=== PATIENT | male | born 1945 | race Caucasian/White ===

== ENCOUNTER → 2020-05-04 | Outpatient (CLI) | payer OTHER ==
[~2020-05-04] MED LIST: ACET325 PO; AMLO10 PO; AMLODIPINE BESYL5 MG PO; ASPI325; ASPI81EC PO; ATOR20 PO; BUPR150T2; CEFTRIAXON1 GM/50 M1 IV; CEPH500 PO; CITA20 PO; CLOP75 PO; FLAGYL500 M2 PO; Lisinopril2.5 MG PO; OXYC5 PO; PAIN RELIEF1 EACH TOP; SILDENAFIL20 MG; Saw Palmetto C1 EACH; TAMSULOSIN HCL0.4 M1 PO; TIMO.5OPG; VISBIOME 112.51 EACH PO; VITS; XARELTO15 M1 PO; ZOLPIDEM TARTRA10 MG PO; [UNRECOGNIZED DRUG - REMARK]; [UNRECOGNIZED DRUG - REMARK]
[2020-05-04 09:01] LABS: Bacteria Not Seen /hpf; Red Blood Cells, Urine 50-100 /hpf (0-2); Source, Urine Clean Catch; Squamous Epithelial Cells Mod /hpf (Few)
[2020-05-04 09:03] LABS: White Blood Cells, Urine Rare /hpf (0-5)
== END | disposition home or self-care (01) ==
LOC: LAB SHORT 08:56 → LAB 08:56
PROVIDERS: Physician Assistant
DX: N39.0 Urinary tract infection, site not specified (principal); R30.9 Painful micturition, unspecified
CPT/HCPCS: 81015; 87086

== ENCOUNTER → 2020-06-24 | Outpatient (CLI) | payer OTHER ==
[2020-06-24 16:34] LABS: Appearance, Urine Cloudy (Clear); Bilirubin, Urine Neg (Neg); Blood, Urine 5+ (Neg); Color, Urine Yellow (P-Yellow); Glucose Qualitative, Urine Neg (Neg); Ketones, Urine Neg (Neg); Leukocyte Esterase, Urine 1+ (Neg); Nitrite, Urine Neg (Neg); Protein, Urine 2+ (Neg); Urobilinogen, Urine 1+ (Normal)
[2020-06-24 16:41] LABS: Albumin, Blood 3.7 g/dL (3.4-5.0); Alk Phos 105 U/L (50-136); Anion Gap 3 mmol/L (6-16); Aspartate Aminotrans (AST/SGOT 18 U/L (12-37); Blood Urea Nitrogen 17 mg/dL (8-24); CHOL/HDL RATIO 3.5; CO2, Blood 31 mmol/L (21-32); Calcium, Blood 9.5 mg/dL (8.5-10.1); Chloride, Blood 103 mmol/L (98-108); Cholesterol 209 mg/dL (50-200); Glucose, Blood 107 mg/dL (70-99); HDL Cholesterol 60 mg/dL (>39); LDL/HDL RATIO 2.1; Low Density Lipoprotein Chol 128 mg/dL (0-110); Sodium, Blood 137 mmol/L (136-145); Triglycerides 103 mg/dL (30-160); Very Low Density Lipoprot Chol 20 mg/dL (6-32)
[2020-06-24 16:48] LABS: Alanine Aminotransfer (ALT/SGP 31 U/L (12-78); Albumin/Globulin Ratio 0.8 (0.8-1.8); Bilirubin, Total 0.4 mg/dL (0.1-1.0); Globulin, Blood 4.4 g/dL (2.2-4.0); Glomerular Filtration Rate >60 (60-); Total Protein, Blood 8.1 g/dL (6.4-8.2)
[2020-06-24 16:56] LABS: Bacteria Few /hpf; Red Blood Cells, Urine TNTC /hpf (0-2); Squamous Epithelial Cells Few /hpf (Few)
== END | disposition home or self-care (01) ==
LOC: LAB SHORT 14:46 → PLD 14:46
PROVIDERS: Registered Nurse
DX: E78.5 Hyperlipidemia, unspecified (principal); N40.1 Benign prostatic hyperplasia with lower urinary tract symptoms; R30.9 Painful micturition, unspecified
CPT/HCPCS: 80053; 80061; 81001; 84153; 87077; 87086; 87186

== ENCOUNTER 2020-07-22 07:49 | Emergency (ER) | payer OTHER ==
[~2020-07-22] VITALS: Ht 190.5 cm; Wt 90.7 kg
[~2020-07-22 07:49] MED LIST changes: -ACET325 PO; -AMLO10 PO; -AMLODIPINE BESYL5 MG PO; -CEFTRIAXON1 GM/50 M1 IV; -CEPH500 PO; -FLAGYL500 M2 PO; -OXYC5 PO; -PAIN RELIEF1 EACH TOP; -TAMSULOSIN HCL0.4 M1 PO; -VISBIOME 112.51 EACH PO; -XARELTO15 M1 PO; -ZOLPIDEM TARTRA10 MG PO
[2020-07-22 08:27] LABS: Source, Urine Clean Catch
[2020-07-22 08:32] LABS: Blood, Urine 5+ (Neg); Glucose Qualitative, Urine Neg (Neg); Ketones, Urine 1+ (Neg); Leukocyte Esterase, Urine 3+ (Neg); Nitrite, Urine Pos (Neg); Protein, Urine 3+ (Neg); Specific Gravity, Urine 1.025 (1.003-1.022); Urobilinogen, Urine 2+ (Normal)
[2020-07-22 08:55] LABS: Bilirubin, Urine 1+ (Neg)
[2020-07-22 08:58] LABS: Appearance, Urine Bloody (Clear); Color, Urine Amber (P-Yellow); Red Blood Cells, Urine TNTC /hpf (0-2); White Blood Cells, Urine TNTC /hpf (0-5)
[2020-07-22 09:00] LABS: Bacteria Many /hpf; Squamous Epithelial Cells Not Seen /hpf (Few)
[2020-07-22] MEDS ORDERED: AMLODIPINE BESYL5 MG PO (09:33)
[2020-07-22] MEDS ORDERED: XARELTO15 M1 PO (09:34)
[2020-07-22] MEDS ORDERED: TAMSULOSIN HCL0.4 M1 PO (09:34)
[2020-07-22] MEDS ORDERED: ZOLPIDEM TARTRA10 MG PO (09:34)
[2020-07-22 09:41] LABS: BASOPHILS ABSOLUTE AUTO 0.04 K/mm3 (0.00-0.23); BASOPHILS PERCENT AUTO 1 % (0-2); EOSINOPHILS ABSOLUTE AUTO 0.33 K/mm3 (0.00-0.68); EOSINOPHILS PERCENT AUTO 4 % (0-6); Hematocrit 24.7 % (37.0-53.0); Hemoglobin 7.9 g/dL (13.5-17.5); IMMATURE GRAN ABSOLUTE AUTO 0.05 K/mm3 (0.00-0.10); IMMATURE GRAN PERCENT AUTO 1 % (0-1); LYMPHOCYTES ABSOLUTE AUTO 0.91 K/mm3 (0.84-5.20); LYMPHOCYTES PERCENT AUTO 11 % (21-46); MONOCYTES ABSOLUTE AUTO 1.29 K/mm3 (0.16-1.47); MONOCYTES PERCENT AUTO 15 % (4-13); Mean Corpuscular HGB 28.3 pg (26.0-34.0); Mean Corpuscular Volume 89 fL (80-100); Mean Platelet Volume 9.4 fL (9.1-12.4); NEUTROPHILS ABSOLUTE AUTO 5.87 K/mm3 (1.96-9.15); NEUTROPHILS PERCENT AUTO 69 % (41-73); Platelet Count 258 K/mm3 (150-400); RDW Coefficient Variation 14.1 % (11.7-14.2); RDW Standard Deviation 46.2 fL (35.1-46.3); Red Blood Cell Count 2.79 M/mm3 (4.30-5.90); White Blood Cell Count 8.49 K/mm3 (4.00-11.30)
[2020-07-22 10:04] LABS: Alanine Aminotransfer (ALT/SGP 26 U/L (12-78); Albumin, Blood 3.1 g/dL (3.4-5.0); Albumin/Globulin Ratio 0.8 (0.8-1.8); Alk Phos 117 U/L (50-136); Anion Gap 3 mmol/L (6-16); Aspartate Aminotrans (AST/SGOT 17 U/L (12-37); Blood Urea Nitrogen 24 mg/dL (8-24); Bun/Creatinine Ratio 26.8 (12.0-20.0); CO2, Blood 31 mmol/L (21-32); Calcium, Blood 8.8 mg/dL (8.5-10.1); Chloride, Blood 106 mmol/L (98-108); Globulin, Blood 3.9 g/dL (2.2-4.0); Glomerular Filtration Rate >60 (60-); Glucose, Blood 113 mg/dL (70-99); Potassium, Blood 3.7 mmol/L (3.5-5.5); Sodium, Blood 140 mmol/L (136-145)
[2020-07-22] MEDS ORDERED: CEPH500 PO (12:56)
== END 2020-07-22 13:05 | disposition home or self-care (01) ==
LOC: ER 07:49
PROVIDERS: Emergency Medicine; Physician Assistant
DX: N32.1 Vesicointestinal fistula (principal); N39.0 Urinary tract infection, site not specified; S32.592A Other specified fracture of left pubis, initial encounter for closed fracture; D64.9 Anemia, unspecified; Z91.81 History of falling; X58.XXXA Exposure to other specified factors, initial encounter
CPT/HCPCS: 36415; 74177; 80053; 81001; 83735; 85025; 87077; 87086; 87186; 96365-59; 96366; 99284-25; A9270; J0696; Q9967

== ENCOUNTER 2020-07-23 14:23 | Inpatient (IN) | payer OTHER, MEDICARE ==
[~2020-07-23] VITALS: Ht 190.5 cm; Wt 89.5 kg
[~2020-07-23 14:23] MED LIST changes: +AMLODIPINE BESYL5 MG PO; +CEPH500 PO; +TAMSULOSIN HCL0.4 M1 PO; +XARELTO15 M1 PO; +ZOLPIDEM TARTRA10 MG PO
[2020-07-23 15:19] LABS: BASOPHILS ABSOLUTE AUTO 0.04 K/mm3 (0.00-0.23); BASOPHILS PERCENT AUTO 0 % (0-2); EOSINOPHILS ABSOLUTE AUTO 0.05 K/mm3 (0.00-0.68); EOSINOPHILS PERCENT AUTO 1 % (0-6); Hematocrit 25.4 % (37.0-53.0); Hemoglobin 8.1 g/dL (13.5-17.5); IMMATURE GRAN ABSOLUTE AUTO 0.03 K/mm3 (0.00-0.10); IMMATURE GRAN PERCENT AUTO 0 % (0-1); LYMPHOCYTES ABSOLUTE AUTO 0.34 K/mm3 (0.84-5.20); LYMPHOCYTES PERCENT AUTO 3 % (21-46); MONOCYTES ABSOLUTE AUTO 0.19 K/mm3 (0.16-1.47); MONOCYTES PERCENT AUTO 2 % (4-13); Mean Corpuscular HGB Conc 31.9 g/dL (31.5-36.5); Mean Corpuscular Volume 88 fL (80-100); Mean Platelet Volume 9.6 fL (9.1-12.4); NEUTROPHILS ABSOLUTE AUTO 9.62 K/mm3 (1.96-9.15); NEUTROPHILS PERCENT AUTO 94 % (41-73); Platelet Count 287 K/mm3 (150-400); RDW Coefficient Variation 14.3 % (11.7-14.2); RDW Standard Deviation 46.2 fL (35.1-46.3); Red Blood Cell Count 2.89 M/mm3 (4.30-5.90); White Blood Cell Count 10.27 K/mm3 (4.00-11.30)
[2020-07-23 15:43] LABS: Alanine Aminotransfer (ALT/SGP 26 U/L (12-78); Albumin, Blood 2.9 g/dL (3.4-5.0); Albumin/Globulin Ratio 0.7 (0.8-1.8); Alk Phos 140 U/L (50-136); Anion Gap 8 mmol/L (6-16); Aspartate Aminotrans (AST/SGOT 26 U/L (12-37); Bilirubin, Total 1.4 mg/dL (0.1-1.0); Blood Urea Nitrogen 22 mg/dL (8-24); Bun/Creatinine Ratio 21.8 (12.0-20.0); CO2, Blood 26 mmol/L (21-32); Calcium, Blood 9.1 mg/dL (8.5-10.1); Chloride, Blood 105 mmol/L (98-108); Creatinine, Blood 1.01 mg/dL (0.60-1.20); Globulin, Blood 4.1 g/dL (2.2-4.0); Glomerular Filtration Rate >60 (60-); Glucose, Blood 139 mg/dL (70-99); Potassium, Blood 3.7 mmol/L (3.5-5.5); Sodium, Blood 139 mmol/L (136-145)
[2020-07-24 05:41] LABS: BASOPHILS ABSOLUTE AUTO 0.04 K/mm3 (0.00-0.23); BASOPHILS PERCENT AUTO 0 % (0-2); EOSINOPHILS ABSOLUTE AUTO 0.21 K/mm3 (0.00-0.68); EOSINOPHILS PERCENT AUTO 2 % (0-6); Hematocrit 22.6 % (37.0-53.0); Hemoglobin 7.3 g/dL (13.5-17.5); IMMATURE GRAN ABSOLUTE AUTO 0.05 K/mm3 (0.00-0.10); IMMATURE GRAN PERCENT AUTO 1 % (0-1); LYMPHOCYTES ABSOLUTE AUTO 0.76 K/mm3 (0.84-5.20); LYMPHOCYTES PERCENT AUTO 8 % (21-46); MONOCYTES ABSOLUTE AUTO 1.52 K/mm3 (0.16-1.47); MONOCYTES PERCENT AUTO 16 % (4-13); Mean Corpuscular HGB 28.4 pg (26.0-34.0); Mean Corpuscular HGB Conc 32.3 g/dL (31.5-36.5); Mean Corpuscular Volume 88 fL (80-100); Mean Platelet Volume 9.9 fL (9.1-12.4); NEUTROPHILS ABSOLUTE AUTO 6.81 K/mm3 (1.96-9.15); NEUTROPHILS PERCENT AUTO 73 % (41-73); Platelet Count 249 K/mm3 (150-400); RDW Coefficient Variation 14.4 % (11.7-14.2); RDW Standard Deviation 46.5 fL (35.1-46.3); Red Blood Cell Count 2.57 M/mm3 (4.30-5.90); White Blood Cell Count 9.39 K/mm3 (4.00-11.30)
[2020-07-24 06:02] LABS: Anion Gap 5 mmol/L (6-16); Blood Urea Nitrogen 18 mg/dL (8-24); Bun/Creatinine Ratio 19.1 (12.0-20.0); CO2, Blood 28 mmol/L (21-32); Calcium, Blood 8.9 mg/dL (8.5-10.1); Chloride, Blood 106 mmol/L (98-108); Creatinine, Blood 0.94 mg/dL (0.60-1.20); Glomerular Filtration Rate >60 (60-); Glucose, Blood 128 mg/dL (70-99); Potassium, Blood 3.5 mmol/L (3.5-5.5); Sodium, Blood 139 mmol/L (136-145)
--- NOTE | 2020-07-24 06:48 | NUR ---
SHIFT SUMMARY PATIENT ARRIVED TO ROOM 310 VIA STRETCHER AT 3. HE IS ALERT AND ORIENTED X4. UNABLE TO GET UP DUE TO PAIN FROM HIS PELVIC FX. PATIENT MEDICATED PER EMAR FOR PAIN. NO COMPLAINTS OF SHORTNESS OF BREATH. CONDOM CATHETER PLACED DUE TO FREQUENCY, INCONTINENCE, PAIN, AND TO PROMOTE REST. IV PATENT AND INFUSING WITH NORMAL SALINE AT 100 ML/HR. BED IN LOWEST POSITION WITH WHEELS LOCKED AND ALARM ON. CALL LIGHT WITHIN REACH. REPORT GIVEN TO ONCOMING RN.
--- NOTE | 2020-07-24 19:16 | NUR ---
a+o but limited vision, saline locked, rm air, no acute changes noted, long conversation with helped settle family and pt concerns, bsr shared with noc nurse and pt
--- NOTE | 2020-07-24 20:38 | NUR ---
BP 182/82; PTS HOME MEDS FOR HYPERTENSION NOT ORDERED; WILLARD MIGUEL NP CALLED AND ADVISED OF THE ABOVE WITH HOME MEDS TO BE ORDERED.
--- NOTE | 2020-07-25 03:56 | NUR ---
SHIFT SUMMARY: 74 Y/O OBESE MALE RESTED COMFORTABLY ALL SHIFT; DENIES PAIN OR NEED FOR ANY TYPE PAIN MEDS HE FEELS COMFORTABLE; DENIES NUMBNESS OR TINGLING BLE/BUE; PT WORE CONDOM CATHETER ALL SHIFT WITH ORANGE COLORED URINE WITH SEDIMENT NOTED; PT ALERT AND ORIENTED X 3; ABLE TO FOLLOW SIMPLE VERBAL COMMANDS; PT VOICED CONCERNS THAT ALL HIS HOME MEDICATIONS HAD NOT BEEN GIVEN SINCE ADMISSION WITH WILLARD MIGUEL, FIXED ROUTE OPERATOR NOTIFIED AND AWARE; BED ALARM APPLIED FOR SAFETY; BED LOW POSITION WITH CALL LIGHT AT SIDE.
[2020-07-25 04:54] LABS: BASOPHILS ABSOLUTE AUTO 0.03 K/mm3 (0.00-0.23); BASOPHILS PERCENT AUTO 0 % (0-2); EOSINOPHILS ABSOLUTE AUTO 0.22 K/mm3 (0.00-0.68); EOSINOPHILS PERCENT AUTO 2 % (0-6); Hemoglobin 7.7 g/dL (13.5-17.5); IMMATURE GRAN ABSOLUTE AUTO 0.04 K/mm3 (0.00-0.10); IMMATURE GRAN PERCENT AUTO 0 % (0-1); LYMPHOCYTES ABSOLUTE AUTO 0.72 K/mm3 (0.84-5.20); LYMPHOCYTES PERCENT AUTO 8 % (21-46); MONOCYTES ABSOLUTE AUTO 1.82 K/mm3 (0.16-1.47); MONOCYTES PERCENT AUTO 20 % (4-13); Mean Corpuscular HGB 27.6 pg (26.0-34.0); Mean Corpuscular HGB Conc 32.1 g/dL (31.5-36.5); Mean Corpuscular Volume 86 fL (80-100); Mean Platelet Volume 9.8 fL (9.1-12.4); NEUTROPHILS ABSOLUTE AUTO 6.42 K/mm3 (1.96-9.15); NEUTROPHILS PERCENT AUTO 69 % (41-73); Platelet Count 282 K/mm3 (150-400); RDW Coefficient Variation 14.2 % (11.7-14.2); RDW Standard Deviation 44.1 fL (35.1-46.3); Red Blood Cell Count 2.79 M/mm3 (4.30-5.90); White Blood Cell Count 9.25 K/mm3 (4.00-11.30)
[2020-07-25 05:12] LABS: Albumin, Blood 2.5 g/dL (3.4-5.0); Anion Gap 6 mmol/L (6-16); Blood Urea Nitrogen 11 mg/dL (8-24); CO2, Blood 29 mmol/L (21-32); Calcium, Blood 8.7 mg/dL (8.5-10.1); Chloride, Blood 103 mmol/L (98-108); Creatinine, Blood 0.73 mg/dL (0.60-1.20); Glomerular Filtration Rate >60 (60-); Glucose, Blood 131 mg/dL (70-99); Phosphorus, Blood 2.2 mg/dL (2.5-4.9); Potassium, Blood 3.2 mmol/L (3.5-5.5); Sodium, Blood 138 mmol/L (136-145)
--- NOTE | 2020-07-25 18:20 | NUR ---
SHIFT SUMMARY- PT IS A/O, PLESANT AND COOPERATIVE. HE WORKED WITH PT TODAY AND TOLERATED WELL. HE IS RECIEVING IV ABX. HE AMBULATED TO THE RESTROOM AND HAD A BM THIS SHIFT. HE SLEPT FOR A BIT THIS AFTERNOON. HIS APPETITE HAS BEEN POOR, BUT HE HAS BEEN EATING AND DRINKING ABOUT HALF OF WHAT HE IS GIVEN. HE REPORTS NOT WANTING TO EAT MUCH. HE HAS A CONDOM CATH ON AND IS DRAINING WELL. HIS BED IS IN THE LOW POSITION AND CALL LIGHT IN REACH
--- NOTE | 2020-07-25 23:35 | NUR ---
CALLED FOR ORDER FOR PAIN UPON URINATION DUE TO UTI. PYRIDIUM ORDER RECIEVED FROM [facility].
[2020-07-26 04:48] LABS: Albumin, Blood 2.5 g/dL (3.4-5.0); Anion Gap 5 mmol/L (6-16); Blood Urea Nitrogen 8 mg/dL (8-24); CO2, Blood 31 mmol/L (21-32); Calcium, Blood 8.9 mg/dL (8.5-10.1); Chloride, Blood 103 mmol/L (98-108); Creatinine, Blood 0.73 mg/dL (0.60-1.20); Glomerular Filtration Rate >60 (60-); Glucose, Blood 139 mg/dL (70-99); Phosphorus, Blood 2.6 mg/dL (2.5-4.9); Potassium, Blood 3.1 mmol/L (3.5-5.5); Sodium, Blood 139 mmol/L (136-145)
--- NOTE | 2020-07-26 05:57 | NUR ---
PT IS A/O, C/O THIS SHIFT OF BURNING UPON URINATION; CALLED ORDER FOR PRN PYRIDIUM RECIEVED. PT IS WEARING CONDOM CATH FOR INCONTINENCE AND FISTULA. HIP FX AFTER FALL AT HOME. 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
[2020-07-26 06:01] LABS: BASOPHILS ABSOLUTE AUTO 0.03 K/mm3 (0.00-0.23); BASOPHILS PERCENT AUTO 0 % (0-2); EOSINOPHILS PERCENT AUTO 3 % (0-6); Hematocrit 24.5 % (37.0-53.0); IMMATURE GRAN ABSOLUTE AUTO 0.02 K/mm3 (0.00-0.10); IMMATURE GRAN PERCENT AUTO 0 % (0-1); LYMPHOCYTES ABSOLUTE AUTO 0.88 K/mm3 (0.84-5.20); LYMPHOCYTES PERCENT AUTO 12 % (21-46); MONOCYTES ABSOLUTE AUTO 1.34 K/mm3 (0.16-1.47); MONOCYTES PERCENT AUTO 18 % (4-13); Mean Corpuscular HGB Conc 32.7 g/dL (31.5-36.5); Mean Corpuscular Volume 86 fL (80-100); Mean Platelet Volume 10.5 fL (9.1-12.4); NEUTROPHILS ABSOLUTE AUTO 5.04 K/mm3 (1.96-9.15); NEUTROPHILS PERCENT AUTO 67 % (41-73); Platelet Count 319 K/mm3 (150-400); RDW Coefficient Variation 14.2 % (11.7-14.2); RDW Standard Deviation 44.6 fL (35.1-46.3); Red Blood Cell Count 2.86 M/mm3 (4.30-5.90); White Blood Cell Count 7.51 K/mm3 (4.00-11.30)
--- NOTE | 2020-07-26 19:15 | NUR ---
SHIFT SUMMARY- PT IS A/O, PLESANT AND COOPERATVIE. HIS APPETITE IS POOR, BUT HE IS EATING AND DRINKING. HE HAD A SHOWER THIS SHIFT. HE IS USING THE CONDOM CATH. HE IS RECIEVING IV ABX. HIS DAUGHTER CALLED THIS SHIFT AND I WAS UNABLE TO REACH HER. THE DOCTOR WILL TRY HER AGAIN TOMORROW. PT RELAYED THIS TO HER. HIS BED IS IN THE LOW POSITION AND CALL LIGHT IS WITIN REACH.
[2020-07-27 04:42] LABS: BASOPHILS ABSOLUTE AUTO 0.05 K/mm3 (0.00-0.23); BASOPHILS PERCENT AUTO 1 % (0-2); EOSINOPHILS ABSOLUTE AUTO 0.35 K/mm3 (0.00-0.68); EOSINOPHILS PERCENT AUTO 5 % (0-6); Hematocrit 25.8 % (37.0-53.0); Hemoglobin 8.3 g/dL (13.5-17.5); IMMATURE GRAN ABSOLUTE AUTO 0.04 K/mm3 (0.00-0.10); IMMATURE GRAN PERCENT AUTO 1 % (0-1); LYMPHOCYTES PERCENT AUTO 16 % (21-46); MONOCYTES ABSOLUTE AUTO 1.21 K/mm3 (0.16-1.47); MONOCYTES PERCENT AUTO 18 % (4-13); Mean Corpuscular HGB 27.4 pg (26.0-34.0); Mean Corpuscular HGB Conc 32.2 g/dL (31.5-36.5); Mean Corpuscular Volume 85 fL (80-100); Mean Platelet Volume 9.8 fL (9.1-12.4); NEUTROPHILS ABSOLUTE AUTO 4.16 K/mm3 (1.96-9.15); NEUTROPHILS PERCENT AUTO 60 % (41-73); Platelet Count 351 K/mm3 (150-400); RDW Coefficient Variation 14.1 % (11.7-14.2); Red Blood Cell Count 3.03 M/mm3 (4.30-5.90); White Blood Cell Count 6.91 K/mm3 (4.00-11.30)
[2020-07-27 05:04] LABS: Albumin, Blood 2.6 g/dL (3.4-5.0); Anion Gap 5 mmol/L (6-16); Blood Urea Nitrogen 9 mg/dL (8-24); Bun/Creatinine Ratio 12.2 (12.0-20.0); CO2, Blood 31 mmol/L (21-32); Chloride, Blood 103 mmol/L (98-108); Creatinine, Blood 0.74 mg/dL (0.60-1.20); Glomerular Filtration Rate >60 (60-); Glucose, Blood 143 mg/dL (70-99); Phosphorus, Blood 3.3 mg/dL (2.5-4.9); Potassium, Blood 3.5 mmol/L (3.5-5.5); Sodium, Blood 139 mmol/L (136-145)
--- NOTE | 2020-07-27 05:41 | NUR ---
PT IS A/O, PELVIC FX FROM FALL AT HOME. 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 PT PREFERS TO WEAR CONDOM CATH, PYRIDIUM GIVEN FOR UTI DISCOMFORT THIS SHIFT. HYDRALAZINE GIVEN PER EMAR FOR HTN THIS AM. 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
[2020-07-27 14:13] LABS: Influenza A, PCR NEGATIVE (NEGATIVE); Influenza B, PCR NEGATIVE (NEGATIVE); Resp Syncytial Virus, PCR NEGATIVE (NEGATIVE); SARS-Cov-2 (COVID-19) PCR, MMC NEGATIVE (NEGATIVE)
--- NOTE | 2020-07-27 15:19 | NUR ---
a+o, moved pt from 310 in his bed along with as much of his furniture as was possible, changed depends when arrived in 361, then assisted to go down for a procedure
--- NOTE | 2020-07-27 15:22 | NUR ---
SHIFT SUMMARY PT GOT OXY FOR PAIN THIS SHIFT IN HIS BACK/PELVIS. AO1 TO WALK IN HALLWAY WITH PT TODAY. INCONTINENT URINE, STOOL ALSO COMING OUT OF URETHRA WITH EACH URINATION. PT ORIENTED, DEPRESSED BUT COOPERATIVE WITH CARE. TOOK PILLS WELL. CARDIOLOGY CONSULT CALLED AND DR SINGER CAME, PT TO HAVE ALBERTINA THIS AFTERNOON. MOVED TO ROOM 361, REPORT GIVEN TO NEXT NURSE IMCHELLE
--- NOTE | 2020-07-27 19:29 | NUR ---
moved here from 310, down for a procedure, medicated as prescribed, abx infusing with no s/sx of infection, call light in reach, rm air, incontinent at times, very relived with report from heart assessment but it means needs to work on clearing up infection and then have work done on digest system, bsr shared with noc nurse and pt
--- NOTE | 2020-07-27 22:00 | NUR ---
ASSUMPTION OF CARE. AOX3, COOPERATIVE. STATES HE IS HOPING TO GET THIS INFECTION CLEARED UP SO THAT HE CAN GO GET HIS SURGERY FOR HIS BLADDER. ALBERTINA WAS NORMAL. PAIN ONLY WITH MOVEMENT BUT HAS BEEN ABLE TO GET SELF TO BSC. ON ASSESSMENT CHANGED ATTENDS WHICH HAD VERY THIN YELLOW FLUID WITH CHUNKS ALMOST LIKE DIARRHEA. AT LEAST I THOUGHT UNTIL HE URINATED IN COMMODE. URINE IS DARK YELLOW, MILKY THICK, FOUL ODOR, SEDIMENT AND WITH CHUNKS OF STUFF. DID HOLD BOWEL CARE MEDS DUR TO THOUGHT OF DIARRHEA ENCOURAGED FLUID INTAKE. LUNG SOUNDS ARE CLEAR. IV SL. DID MEDICATE FOR PAIN THIS EVENING. DENIES N/T. NO OTHER NEEDS TO NOTE. CALL LIGHT IS IN REACH.
--- NOTE | 2020-07-28 05:37 | NUR ---
SHIFT SUMMARY: AOX3, ABLE TO GET UP TO BSC WITH SBA. TOLERATES PAIN WELL WITH MOVEMENT. BRUISING TO INNER THIGH RESOLVING. ALBERTINA WAS NORMAL. BLOOD SUGAR 165. VITALS: BP AVERAGING 160'S. LAST WAS 163 AFTER HE GOT UP TO BSC THEREFORE DID NOT GIVE HYDRALAZINE. MEDICATED FOR PAIN X1 SO FAR THIS SHIFT. URINE IS VERY FOUL APPEARING, THICK YELLOW MILKY WITH CHUNKS IN IT. HAS BEEN CONTIENT REST OF SHIFT. 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 CALL LIGHT REMAINS IN REACH.
--- NOTE | 2020-07-28 18:41 | NUR ---
SHIFT SUMMARY. A&OX4, INDPENDENT TO BSC WITH FWW. PT CONTINUES WITH PAIN TO L HIP THAT HAS BEEN MANAGED WELL WITH CURRENT ORDERS. PT REPORTS POOR APPETITE, POOR MEAL INTAKE THIS SHIFT, REFUSED SUPPLEMENTS. NO N/V, SOB. CONTINUES WITH URINE THAT IS ORANGE TINGED, WITH BROWN SEDIMENT. NO OTHER CHANGES OR CONCERNS.
--- NOTE | 2020-07-28 19:44 | NUR ---
ASSUMPTION OF CARE. PAIN IS BETTER CONTROLLED TODAY THE PATIENT AGREED TO TAKE MORE PAIN MEDS INSTEAD OF TOUGHING IT OUT. HE HAS BEEN UP INDEPENDENTLY TO BSC. PAIN STILL WITH MOVEMENT BUT HE TOLERATES WELL. PAIN CURRENTLY RUNNING 4-5. WILL MEDICATE WITH NIGHT MEDS. BRUISING TO INNER THIGH IS IMPROVING. STATES THE ABILITY TO URINATE IS BETTER BUT THE COLOR AND QUALITY HAS NOT CHANGED, STILL LOOKS LIKE A LOOSE BOWEL MOVEMENT. DENIES ANY NEEDS AT THIS TIME. CALL LIGHT IS IN REACH.
--- NOTE | 2020-07-29 05:26 | NUR ---
SHIFT SUMMARY: AOX3, IS BEEN INDEPENDENT TO THE [facility]. PAIN IS MORE TOLERATBLE HE HAS AGREED TO TAKE PAIN MEDS MORE OFTEN. HE HAS LESS PAIN WHEN HE MOVES THIS WAY. VS SHOWED A BP OF 167/86 AND A TEMP THIS AM OF 99. BP DID RETURN TO NORMAL. URINE STILL HAS PEICES OF WHAT APPEARS TO BE STOOL IN IT AND IS VERY CLOUDY, SEDIMENT, FOUL ORDER BUT HE IS PRODUCING MORE AND IT IS EASIER FOR HIM TO URINATE. WAS UP WITH WALKER IN ROOM LAST NIGHT JUST TAKING STEPS, IS TOLERATING MOVEMENT ALOT EASIER. PLAN IS POSSIBLE DC HOME ON ANTIBOTICS AND HOME HEALTH. CALL LIGHT IS IN REACH.
--- NOTE | 2020-07-29 16:47 | NUR ---
CALLED AND SPOKE TO OFFICE OF DR ALEX RUST COLORECTAL SURGEON IN [place] ([phone]) FOR AN APPOINTMENT FOR PT TO FOLLOW UP WITH POST DISCHARGE FOR COLOVESICAL FISTULA. PER OFFICE PT NEEDS A REFERALL SENT STAT IN ORDER TO SCHEDULE AN APPOINTMENT. REFERRAL FAXED TO OFFICE ([phone]) PER DR ALLISON. PER OFFICE ONCE THEY RECEIVE THIS THEY CAN SCHEDULE AN APPOINTMENT, WILL FOLLOW UP TOMORROW FOR APPT.
--- NOTE | 2020-07-29 16:55 | NUR ---
SHIFT SUMMARY- PT A/OX3, PT UP INDEP TO BSC. PT MEDICATED WITH OXYCODONE FOR LEFT PELVIC PAIN, PT REPORTS OXY IS SUFFICIENT. LS CLEAR, ON RA. HRR. URINE CLOUDY WITH SEDIMENT NOTED. PT WITH POOR PO INTAKE, ENSURES OFFERED AND DIETARY CONSULT PLACED. PT REPORTS HE JUST HAS NO APPETITE. MEETING THIS AFTERNOON WITH DR ALLISON, PLASTIC EXTRUSION OPERATOR, DAUGHTER, PT AND MYSELF TO DISCUSS DISCHARGE PLAN. NO OTHER ACUTE CHANGES THIS SHIFT.
--- NOTE | 2020-07-30 04:07 | NUR ---
SHIFT SUMMARY ASSUMED CARE OF PT AT 1900. PT IS A/OX4. HEART SOUNDS REGULAR, LUNG SOUNDS DIMINISHED. PT IS INDEPENDENT TO BSC. PT C/O PAIN IN HIPS, MEDICATED PER EMAR. PT HAS BRUSING ALONG PEVLIC AREA FROM FALL. CALL LIGHT IN REACH, BED IN LOWEST POSITION.
--- NOTE | 2020-07-30 12:43 | NUR ---
APPOINTMENT MADE WITH DR ALEX RUST FOR MondayJuly AT 3:00PM.
--- NOTE | 2020-07-30 16:31 | NUR ---
SHIFT SUMMARY- PT A/OX4, INDEP UP TO BSC. PT MEDICATED FOR PAIN TO LEFT PELVIS. LS CLEAR, ON RA. PT CONT TO HAVE URINE MIXED WITH STOOL. NO BM TODAY. PT WITH POOR APETITE BUT DID EAT A LITTLE MORE TODAY THAN YESTERDAY AND IS DRINKING ENSURES. POSS D/C TOMORROW WITH HOME IV ANTIBIOTICS. PT HAS A FOLLOW UP WITH COLORECTAL SUGEON IN [place] ON July. NO OTHER ACUTE CHANGES THIS SHIFT.
--- NOTE | 2020-07-31 04:43 | NUR ---
SHIFT SUMMARY ASSUMED CARE OF PT AT 1900. PT IS A/OX4. HEART SOUNDS REGULAR, LUNG SOUNDS DIMINISHED AT BASES. PT IS INDEPENDNT TO COMMODE. PT C/P PAIN IN HIS HIP TWICE. NO ACUTE EVENTS, PT WAS ABLE TO GET SLEEP TONIGHT. CALL LIGHT IN REACH, BED IN LOWEST POSITION.
[2020-07-31] MEDS ORDERED: AMLO10 PO (13:17)
[2020-07-31] MEDS ORDERED: ACET325 PO (13:18)
[2020-07-31] MEDS ORDERED: OXYC5 PO (13:19)
[2020-07-31] MEDS ORDERED: PAIN RELIEF1 EACH TOP (13:19)
[2020-07-31] MEDS ORDERED: CEFTRIAXON1 GM/50 M1 IV (13:20)
[2020-07-31] MEDS ORDERED: VISBIOME 112.51 EACH PO (13:20)
[2020-07-31] MEDS ORDERED: FLAGYL500 M2 PO (13:21)
--- NOTE | 2020-07-31 16:14 | NUR ---
DISCHARGE SUMMARY PT LEFT WITH DAUGHTER. PIV REMOVED AND POWERGLIDE STARTED BY HOME HEALTH CARE SOCIAL WORKER. PT AND DAUGHTER EDUCATED THOROUGHLY ON GIVING HIMSELF DAILY IV CEFTIAXONE. MEDS FAXED TO [facility]. PHYSICAL COPY OF OXY GIVEN TO PT, COPY PUT IN CHART. APPT MADE FOR HIM NEXT WEEK FOR HIS SURGICAL CONSULT IN [place].
== END 2020-07-31 15:44 | disposition home health service (06) | DRG 872 ==
LOC: ER 14:23 → MEDS 18:11 → ENPENDDIS 07-31 11:50 → MEDS 07-31 15:44
PROVIDERS: Emergency Medicine; Family Medicine; Internal Medicine Cardiovascular Disease; Nurse Practitioner Acute Care; ADMIT Internal Medicine
PROC: B24BZZ4 Ultrasonography of Heart with Aorta, Transesophageal (ICD-10-PCS; principal; 2020-07-27)
DX: A41.89 Other specified sepsis (principal); N39.0 Urinary tract infection, site not specified; N32.1 Vesicointestinal fistula; M80.08XA Age-related osteoporosis with current pathological fracture, vertebra(e), initial encounter for fracture; D68.32 Hemorrhagic disorder due to extrinsic circulating anticoagulants; E87.2 Acidosis; D62 Acute posthemorrhagic anemia; Z20.822 Contact with and (suspected) exposure to COVID-19; T45.515A Adverse effect of anticoagulants, initial encounter; S36.899D Unspecified injury of other intra-abdominal organs, subsequent encounter; I10 Essential (primary) hypertension; N20.0 Calculus of kidney; E78.5 Hyperlipidemia, unspecified; S32.512D Fracture of superior rim of left pubis, subsequent encounter for fracture with routine healing; E87.6 Hypokalemia; E83.39 Other disorders of phosphorus metabolism; H54.8 Legal blindness, as defined in USA; R65.20 Severe sepsis without septic shock; S32.592D Other specified fracture of left pubis, subsequent encounter for fracture with routine healing; Z87.891 Personal history of nicotine dependence; Z86.73 Personal history of transient ischemic attack (TIA), and cerebral infarction without residual deficits; Z90.49 Acquired absence of other specified parts of digestive tract; Z98.890 Other specified postprocedural states; Z88.0 Allergy status to penicillin; Z88.8 Allergy status to other drugs, medicaments and biological substances; X58.XXXD Exposure to other specified factors, subsequent encounter
CPT/HCPCS: 0241U; 36415; 71045; 80048; 80053; 80069; 82607; 82728; 82746; 82947; 83540; 83550; 83605; 85025; 87040; 87076; 93306; 93312; 93325; 96365; 96367; 96375; 97110; 97116; 97162; 97530; 99152; 99285-25; A9270; J0360; J0696; J1170; J2250; J2310; J3010; J7030; J7040; J7050; J7060

== ENCOUNTER 2020-08-30 10:12 | Emergency (ER) | payer OTHER ==
[~2020-08-30] VITALS: Ht 190.5 cm; Wt 81.7 kg
[~2020-08-30 10:12] MED LIST changes: +ACET325 PO; +AMLO10 PO; +CEFTRIAXON1 GM/50 M1 IV; +FLAGYL500 M2 PO; +OXYC5 PO; +PAIN RELIEF1 EACH TOP; +VISBIOME 112.51 EACH PO
[2020-08-30 10:31] LABS: BASOPHILS ABSOLUTE AUTO 0.07 K/mm3 (0.00-0.23); BASOPHILS PERCENT AUTO 1 % (0-2); EOSINOPHILS ABSOLUTE AUTO 0.25 K/mm3 (0.00-0.68); EOSINOPHILS PERCENT AUTO 3 % (0-6); Hematocrit 30.4 % (37.0-53.0); Hemoglobin 9.7 g/dL (13.5-17.5); IMMATURE GRAN ABSOLUTE AUTO 0.04 K/mm3 (0.00-0.10); IMMATURE GRAN PERCENT AUTO 0 % (0-1); LYMPHOCYTES ABSOLUTE AUTO 0.96 K/mm3 (0.84-5.20); LYMPHOCYTES PERCENT AUTO 9 % (21-46); MONOCYTES ABSOLUTE AUTO 0.97 K/mm3 (0.16-1.47); MONOCYTES PERCENT AUTO 10 % (4-13); Mean Corpuscular HGB 27.6 pg (26.0-34.0); Mean Corpuscular HGB Conc 31.9 g/dL (31.5-36.5); Mean Corpuscular Volume 87 fL (80-100); Mean Platelet Volume 9.6 fL (9.1-12.4); NEUTROPHILS ABSOLUTE AUTO 7.89 K/mm3 (1.96-9.15); NEUTROPHILS PERCENT AUTO 78 % (41-73); Platelet Count 425 K/mm3 (150-400); RDW Coefficient Variation 13.7 % (11.7-14.2); RDW Standard Deviation 43.1 fL (35.1-46.3); Red Blood Cell Count 3.51 M/mm3 (4.30-5.90); White Blood Cell Count 10.18 K/mm3 (4.00-11.30)
[2020-08-30 10:49] LABS: Alanine Aminotransfer (ALT/SGP 16 U/L (12-78); Albumin/Globulin Ratio 0.6 (0.8-1.8); Alk Phos 121 U/L (50-136); Anion Gap 6 mmol/L (6-16); Aspartate Aminotrans (AST/SGOT 14 U/L (12-37); Bilirubin, Total 0.5 mg/dL (0.1-1.0); Blood Urea Nitrogen 16 mg/dL (8-24); Bun/Creatinine Ratio 20.6 (12.0-20.0); CO2, Blood 27 mmol/L (21-32); Calcium, Blood 9.3 mg/dL (8.5-10.1); Chloride, Blood 106 mmol/L (98-108); Creatinine, Blood 0.78 mg/dL (0.60-1.20); Globulin, Blood 4.7 g/dL (2.2-4.0); Glomerular Filtration Rate >60 (60-); Glucose, Blood 105 mg/dL (70-99); Potassium, Blood 4.1 mmol/L (3.5-5.5); Sodium, Blood 139 mmol/L (136-145); Total Protein, Blood 7.7 g/dL (6.4-8.2)
[2020-08-30 13:21] LABS: Source, Urine Catheter
[2020-08-30 13:51] LABS: Bilirubin, Urine Neg (Neg); Blood, Urine 4+ (Neg); Glucose Qualitative, Urine Neg (Neg); Ketones, Urine 2+ (Neg); Leukocyte Esterase, Urine 3+ (Neg); Nitrite, Urine Pos (Neg); Protein, Urine 2+ (Neg); Urobilinogen, Urine NORM (Normal)
[2020-08-30 14:17] LABS: Appearance, Urine Cloudy (Clear); Color, Urine Yellow (P-Yellow)
[2020-08-30 14:18] LABS: White Blood Cells, Urine TNTC /hpf (0-5)
[2020-08-30 14:19] LABS: Bacteria Many /hpf; Red Blood Cells, Urine 25-50 /hpf (0-2); Squamous Epithelial Cells Few /hpf (Few)
== END 2020-08-30 15:00 | disposition home or self-care (01) ==
LOC: ER 10:12
PROVIDERS: Emergency Medicine
DX: R41.82 Altered mental status, unspecified (principal); I10 Essential (primary) hypertension; Z79.899 Other long term (current) drug therapy; Z88.0 Allergy status to penicillin; Z88.8 Allergy status to other drugs, medicaments and biological substances; Z87.891 Personal history of nicotine dependence
CPT/HCPCS: 71045; 80053; 81001; 85025; 87086; 93005; 93010; 99285-25; J7030